=== PATIENT | female | born 2005 | race Two or more races ===

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

== ENCOUNTER 2025-03-21 16:07 | Inpatient (IN) | payer MEDICAID ==
[~2025-03-21] VITALS: Ht 167.6 cm; Wt 55.4 kg
[2025-03-21] MEDS: LORazepam 2MG/ML-1ML VIAL IM ONE (16:50)
[2025-03-21] MEDS: LORazepam 2MG/ML-1ML VIAL ONE (16:58)
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
[2025-03-21 18:30] LABS: Basophils # (auto) 0.1 10 ^3/uL (0-0.2); Eosinophils # (auto) 0 10 ^3/uL (0-0.8); Eosinophils % (auto) 0.5 % (0.0-7.0); Hematocrit 42.9 % (36.0-46.0); Hemoglobin 14.7 g/dL (12.2-16.2); Lymphocytes # (auto) 1.4 10 ^3/uL (0.4-5.4); Lymphocytes % (auto) 18.6 % (10.0-50.0); Mean Corpuscular Hgb Conc. 34.3 g/dL (32.0-36.0); Mean Corpuscular Volume 84.5 fL (80.0-100.0); Monocytes # (auto) 0.7 10 ^3/uL (0-1.3); Monocytes % (auto) 9.3 % (0.0-12.0); Neutrophils # (auto) 5.4 10 ^3/uL (1.6-8.6); Neutrophils % (auto) 70.6 % (37.0-80.0); Nucleated Red Blood Cells % 0.1 %; Platelet Count (auto) 244 10^3/uL (140-450); Red Blood Cells 5.07 10^6/uL (4.0-5.20); Red Cell Distribution Width 14.5 % (11.8-14.3); White Blood Cell 7.6 10^3/uL (4.4-10.8)
[2025-03-21 18:41] LABS: Alanine Aminotransferase 11 U/L (7-40); Alkaline Phosphatase 60 U/L (46-116); Anion Gap 17 (5-15); Aspartate Aminotransferase 15 U/L (13-40); BUN/Creatinine Ratio 16.1 (10.0-20.0); Blood Urea Nitrogen 10 mg/dL (9-23); Calcium 9.2 mg/dL (8.7-10.4); Chloride 102 mmol/L (98-107); Sodium 137 mmol/L (136-145); Total Protein 7.8 g/dL (5.7-8.2)
[2025-03-21 18:42] LABS: Bilirubin, Total 0.9 mg/dL (0.2-1.0)
[2025-03-21 18:47] LABS: Albumin 4.9 g/dL (3.2-4.8); Carbon Dioxide 18 mmol/L (20-31); Glucose 74 mg/dL (74-106); Potassium 3.4 mmol/L (3.5-5.1)
[2025-03-21 20:28] LABS: Urine Bacteria None Seen /hpf (None Seen)
[2025-03-21 20:36] LABS: Urine Blood Negative /uL (Negative); Urine Clarity Turbid (Clear); Urine Color Yellow (Yellow); Urine Mucus FEW (None Seen); Urine Protein, UAD 1+ (Negative); Urine Specific Gravity 1.036 (1.001-1.035); Urine Squamous Epithelial Cell FEW /hpf (<5); Urine Urobilinogen 2 mg/dL (Negative); Urine WBC 14 /HPF (0-5)
[2025-03-21] MEDS: POTASSIUM CHLORIDE 20 MEQ in D5W/LACTATED RINGERS 1,000 ML IV SCH (20:45)
[2025-03-21 20:48] LABS: Amphetamine Screen, Urine Neg (NEGATIVE); Barbiturate Scree,Urine Neg (NEGATIVE); Benzodiazephine Screen, Urine Neg (NEGATIVE); Cannabinoid Screen, Urine Pos (NEGATIVE); Cocaine Screen, Urine Neg (NEGATIVE); Opiate Scree,Urine Neg (NEGATIVE); Phencyclidine Screen, Urine Neg (NEGATIVE)
[2025-03-21] MEDS: D5W 5% 1,000 ML IV ONE (21:28)
--- NOTE | 2025-03-21 21:40 | DVH ---
EXAM: CT HEAD WITHOUT CONTRAST INDICATION: aloc TECHNIQUE: CT of the head without intravenous contrast. Radiation Dose : 1. Head: CT Dose: CTDI volume is 52 mGy. Dose-length product is 731 mGy*cm The dose indicators for CT are the volume Computed Tomography (CT) Dose Index (CTDIvol) and the Dose Length Product (DLP), and are measured in units of mGy and mGy-cm, respectively. These indicators are not patient dose, but values generated from the CT scanner acquisition factors. The report includes radiation exposure data for exposures received during this examination. COMPARISON: None FINDINGS: There is no evidence of acute intracranial hemorrhage, extra-axial collection, mass effect, midline s hift, herniation or hydrocephalus. The ventricles, sulci and cisterns are age appropriate. The hawley-white differentiation is intact. Patchy periventricular and subcortical white matter hypoattenuation is nonspecific but may be related to small vessel ischemic disease. The visualized paranasal sinuses and mastoid air cells are clear. The surrounding soft tissues and osseous structures are unremarkable. IMPRESSION: 1. No acute intracranial abnormality. Radiation optimization: All CT scans at this facility use at least one of these dose optimization eliud hniques: automated exposure control mA and/or kV adjustment per patient size (includes targeted exam s where dose is matched to clinical indication) or iterative reconstruction.
[2025-03-22] VITALS (7 sets, daily range): BP systolic 93–120; BP diastolic 48–53; PULSE 75–94; RESP 15–18; TEMP 98.4–98.8; O2SAT 96–100
[2025-03-22] MEDS ORDERED: D5W 5% 1,000 ML IV SCH (07:30)
[2025-03-22] MEDS: ONDANSETRON HCL 4 MG/2 ML VIAL ONE (07:31)
[2025-03-22] MEDS: ONDANSETRON HCL 4 MG/2 ML VIAL IV ONE (07:32)
[2025-03-22] MEDS ORDERED: ONDANSETRON HCL 4 MG/2 ML VIAL IV PRN (08:00)
[2025-03-22] MEDS ORDERED: HYDROcodone-ACET 5/325MG TAB PO PRN (08:00)
[2025-03-22] MEDS ORDERED: DOCUSATE SOD 100 MG CAP PO PRN (08:00)
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
[2025-03-22] MEDS: SODIUM CHLORIDE 0.9% 1,000 ML IV ONE (08:38)
[2025-03-22] MEDS: SODIUM CHLORIDE 0.9% 1,000 ML IV SCH (08:38)
[2025-03-22] MEDS: POTASSIUM CHL 20MEQ/100ML 100 ML IV ONE (09:38)
--- NOTE | 2025-03-22 12:12 | DVH ---
Date: 03/22/2025 10:27 AM Examination: XY KUB ABDOMEN SINGLE VIEW History: Nausea Comparison: None TECHNIQUE: Frontal views of the abdomen was obtained. FINDINGS: Bowel gas pattern is unremarkable. The lung bases are unremarkable. No acute osseous abnormality identified. IMPRESSION: Nonobstructive bowel gas pattern.
[2025-03-22] MEDS: methylPREDNISolone SOD SUCC 40 MG/ML VL IV ONE (14:15)
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
--- NOTE | 2025-03-22 16:30 | DVH ---
Exam: CT CHST AB PEL WO CON-NO IV/ORAL History: abd pain Comparison Study: None Technique: Multidetector spiral CT of the chest, abdomen and pelvis was performed from lower neck to pubic symphysis. Axial, coronal and sagittal multiplanar reformats were performed by the technologist on a separate workstation. Radiation Dose : Chest/Abdomen/Pelvis: CTDIvol 6.08 mGy, DLP 419.11 mGy*cm. Findings: Lower neck: Normal thyroid. Lungs: No focal consolidation, pleural effusion or pneumothorax. Heart/Vascular Structures: Normal heart size. No pericardial effusion. Lymph Nodes: No adenopathy Pleura: No pleural effusion or significant pneumothorax. Liver: Hypodensity in the liver adjacent to the falciform ligament likely focal fatty infiltration. Gallbladder and Biliary Tree: Unremarkable Spleen: Unremarkable Pancreas: The pancreas is normal in appearance without focal lesions or abnormal enhancement. Adrenal Glands: Unremarkable Kidneys: Kidneys demonstrate normal symmetric enhancement without focal lesions, calculi or hydroneph rosis. Bladder: Unremarkable Bowel: The stomach is grossly normal in appearance. Small bowel and colon are normal in caliber and d istribution. Normal appendix is visualized in the right lower quadrant without findings of appendici tis. Ascites: Free fluid in the pelvis is likely physiologic. Lymphadenopathy: No mesenteric, retroperitoneal or periportal lymphadenopathy. Abdominal Wall and Mesentery: Unremarkable. Vasculature: The visualized abdominal aorta is normal in size and caliber. Abdominal and pelvic vess els demonstrate normal enhancement. Pelvic Organs: Unremarkable Musculoskeletal: No aggressive focal bony lesions, acute fractures or dislocation. IMPRESSION: 1. No acute findings involving the chest, abdomen or pelvis. Likely focal fatty infiltration in the l iver. Free fluid in the pelvis is likely physiologic. HS:Y
[2025-03-22] MEDS: D5W/SOD CHL 0.45% 1,000 ML IV ONE (17:30)
[2025-03-22 18:00] LABS: Thyroid Stimulating Hormone 0.87 uIU/mL (0.55-4.78)
[2025-03-22 18:26] LABS: Basophils # (auto) 0.1 10 ^3/uL (0-0.2); Basophils % (auto) 0.8 % (0.0-2.0); Eosinophils # (auto) 0.1 10 ^3/uL (0-0.8); Eosinophils % (auto) 1.3 % (0.0-7.0); Hematocrit 39.5 % (36.0-46.0); Hemoglobin 13.7 g/dL (12.2-16.2); Lymphocytes # (auto) 1.5 10 ^3/uL (0.4-5.4); Lymphocytes % (auto) 23.1 % (10.0-50.0); Mean Corpuscular Hemoglobin 29.2 pg (28.0-32.0); Mean Corpuscular Hgb Conc. 34.8 g/dL (32.0-36.0); Mean Corpuscular Volume 84.1 fL (80.0-100.0); Monocytes # (auto) 0.6 10 ^3/uL (0-1.3); Monocytes % (auto) 8.8 % (0.0-12.0); Neutrophils # (auto) 4.4 10 ^3/uL (1.6-8.6); Nucleated Red Blood Cells % 0.1 %; Platelet Count (auto) 206 10^3/uL (140-450); Red Cell Distribution Width 14.1 % (11.8-14.3); White Blood Cell 6.7 10^3/uL (4.4-10.8)
[2025-03-22 18:41] LABS: Beta HCG, Quantitative 0.9 mIU/mL (1.5-4.2)
[2025-03-22 18:46] LABS: Alanine Aminotransferase 11 U/L (7-40); Albumin 4.2 g/dL (3.2-4.8); Alkaline Phosphatase 55 U/L (46-116); Anion Gap 14 (5-15); Aspartate Aminotransferase 16 U/L (13-40); BUN/Creatinine Ratio 10.3 (10.0-20.0); Calcium 9.5 mg/dL (8.7-10.4); Chloride 105 mmol/L (98-107); Glucose 91 mg/dL (74-106); Sodium 139 mmol/L (136-145); Total Protein 6.7 g/dL (5.7-8.2)
[2025-03-22 18:47] LABS: Bilirubin, Total 0.9 mg/dL (0.2-1.0)
[2025-03-22 18:51] LABS: Blood Urea Nitrogen 6 mg/dL (9-23); Carbon Dioxide 20 mmol/L (20-31); Potassium 3.2 mmol/L (3.5-5.1)
[2025-03-22] MEDS: methylPREDNISolone SOD SUCC 40 MG/ML VL IV SCH (22:00)
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
[2025-03-23] VITALS (8 sets, daily range): BP systolic 93–100; BP diastolic 47–59; PULSE 64–92; RESP 16–18; TEMP 98.1–98.6; O2SAT 97–100
[2025-03-23] MEDS: AMPICILLIN & SULBACTAM SODIUM 3 GM in SODIUM CHL 0.9% 100 ML IV SCH (00:30)
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
[2025-03-23] MEDS ORDERED: MORPHINE SULFATE INJ 2 MG/ml SYRG IV PRN (11:00)
[2025-03-23] MEDS: SODIUM CHLORIDE 0.9% 500 ML IV ONE (11:00)
[2025-03-23 11:45] LABS: Basophils # (auto) 0.1 10 ^3/uL (0-0.2); Basophils % (auto) 1.2 % (0.0-2.0); Eosinophils # (auto) 0.2 10 ^3/uL (0-0.8); Eosinophils % (auto) 3.2 % (0.0-7.0); Hematocrit 36.4 % (36.0-46.0); Hemoglobin 12.9 g/dL (12.2-16.2); Lymphocytes # (auto) 1.9 10 ^3/uL (0.4-5.4); Lymphocytes % (auto) 35.4 % (10.0-50.0); Mean Corpuscular Hemoglobin 29.3 pg (28.0-32.0); Mean Corpuscular Hgb Conc. 35.3 g/dL (32.0-36.0); Mean Corpuscular Volume 82.9 fL (80.0-100.0); Monocytes # (auto) 0.6 10 ^3/uL (0-1.3); Monocytes % (auto) 11.6 % (0.0-12.0); Neutrophils # (auto) 2.6 10 ^3/uL (1.6-8.6); Neutrophils % (auto) 48.6 % (37.0-80.0); Nucleated Red Blood Cells % 0.2 %; Platelet Count (auto) 191 10^3/uL (140-450); Red Blood Cells 4.39 10^6/uL (4.0-5.20); Red Cell Distribution Width 13.9 % (11.8-14.3); White Blood Cell 5.3 10^3/uL (4.4-10.8)
[2025-03-23 11:59] LABS: Alanine Aminotransferase 13 U/L (7-40); Albumin 3.7 g/dL (3.2-4.8); Alkaline Phosphatase 51 U/L (46-116); Anion Gap 9 (5-15); Aspartate Aminotransferase 15 U/L (13-40); BUN/Creatinine Ratio 11.1 (10.0-20.0); Bilirubin, Total 0.7 mg/dL (0.2-1.0); Blood Urea Nitrogen < 5 mg/dL (9-23); Calcium 9.2 mg/dL (8.7-10.4); Carbon Dioxide 25 mmol/L (20-31); Chloride 105 mmol/L (98-107); Glucose 95 mg/dL (74-106); Potassium 2.8 mmol/L (3.5-5.1); Sodium 139 mmol/L (136-145)
[2025-03-23] MEDS: D5W/SOD CHL 0.45% 1,000 ML IV SCH (12:00)
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
--- NOTE | 2025-03-23 16:50 | DVHINCON2 ---
Date of service: March 23, [address] Tamez Reason for Consultation Nausea vomiting and drooling inability to swallow History of Present Illness Miriam Pelletier is a 19-year-old female being seen for generalized weakness. The patient was brought in by her brother due to her not eating, vomiting, and losing weight. On assessment the patient is vomiting. She has refused to take anything PO from the nurse. She is not speaking much and will minimally answer questions. According to her older brother who is bedside, he states she ran away with her boyfriend about 4 years ago. She came home 2 years ago, stated something about possibly having an . Then left with the boyfriend again and was not seen for another 2 years. She came home two days ago and the family was concerned about her physical and mental state so they brought her to the hospital. He states when they were younger, there were problems with their real parents. Miriam and his younger brother were in counseling and placed on medications, but he is not sure of the diagnosis or the medication. Family History: Patient reports no known family medical history. Allergies: Coded Allergies: [place] (Verified Allergy, Severe, 03/21/25) Current Medications Current Medications Medications (Trade) Dose Ordered Sig/Heather Route PRN Reason Start Time Stop Time Status Last Admin Methylprednisolone Sodium Succinate (Solu Medrol) 20 mg BID IV 03/22/25 22:00 Ampicillin Sodium/ Sulbactam Sodium 3 gm/Sodium Chloride 100 ml @ 100 mls/hr Q6H IV 03/23/25 00:30 Dextrose/Sodium Chloride 1,000 ml @ 75 mls/hr [id number] IV 03/23/25 11:00 03/23/25 12:00 Morphine Sulfate 2 mg Q6HPRN PRN IV MODERATE PAIN (4-6 PAIN SCALE) 03/23/25 11:00 Vital Signs Vital Signs Date Time Temp Pulse Resp B/P (MAP) Pulse Ox O2 Delivery O2 Flow Rate FiO2 03/23/25 13:15 98.2 92 18 98/59 (72) 98 98.2 03/23/25 08:00 Room Air* 0 21 Physical Exam On exam she is severely lethargic, very slow to open mouth. No lid lag/lid fatigue. General Appearance: Alert, Oriented X3, lethargic and sleepy but arousable, can not decipher her speech HEENT: Atraumatic, PERRLA, Mucous membr. moist/pink Respiratory: Clear to auscultation, Normal air movement Cardiovascular: Regular rate, Normal S1, Normal S2 Abdominal: Normal bowel sounds, Soft; mild epigastric tenderness no rebound or guarding Extremities: No clubbing, No cyanosis, No edema, Normal pulses Skin: No rashes, No breakdown, No significant lesion Neuro: Normal gait, Other (decreased strength) Psych/Mental Status: Other (withdrawn, slow to answer, ) Reflexes intact but diminished lower extremity. Strength 3-lower extremities, 4- upper extremities. Not swallowing, drooling saliva out. Tries to talk but unable to hear voice. Failed bedside swallow test. Labs/Diagnostic Data Labs Test 03/23/25 11:17 03/22/25 17:07 03/22/25 12:41 03/22/25 06:27 Range/Units White Blood Count 5.3 4.4-10.8 10^3/uL Red Blood Count 4.39 4.0-5.20 10^6/uL Hemoglobin 12.9 12.2-16.2 g/dL Hematocrit 36.4 36.0-46.0 % Mean Corpuscular Volume 82.9 80.0-100.0 fL Mean Corpuscular Hemoglobin 29.3 28.0-32.0 pg Mean Corpuscular Hemoglobin Concent 35.3 32.0-36.0 g/dL Red Cell Distribution Width 13.9 11.8-14.3 % Platelet Count 191 140-450 10^3/uL Mean Platelet Volume 9.5 6.9-10.8 fL Neutrophils (%) (Auto) 48.6 37.0-80.0 % Lymphocytes (%) (Auto) 35.4 10.0-50.0 % Monocytes (%) (Auto) 11.6 0.0-12.0 % Eosinophils (%) (Auto) 3.2 0.0-7.0 % Basophils (%) (Auto) 1.2 0.0-2.0 % Neutrophils # (Auto) 2.6 1.6-8.6 10 ^3/uL Lymphocytes # (Auto) 1.9 0.4-5.4 10 ^3/uL Monocytes # (Auto) 0.6 0-1.3 10 ^3/uL Eosinophils # (Auto) 0.2 0-0.8 10 ^3/uL Basophils # (Auto) 0.1 0-0.2 10 ^3/uL Nucleated Red Blood Cells 0.2 % Sodium Level 139 136-145 mmol/L Potassium Level 2.8 L 3.5-5.1 mmol/L Chloride Level 105 98-107 mmol/L Carbon Dioxide Level 25 20-31 mmol/L Anion Gap 9 5-15 Blood Urea Nitrogen < 5 L 9-23 mg/dL Creatinine 0.45 L 0.550-1.02 mg/dL Glomerular Filtration Rate Calc 140 >90 mL/min BUN/Creatinine Ratio 11.1 10.0-20.0 Serum Glucose 95 74-106 mg/dL Calcium Level 9.2 8.7-10.4 mg/dL Total Bilirubin 0.7 0.2-1.0 mg/dL Aspartate Amino Transferase (AST) 15 13-40 U/L Alanine Aminotransferase (ALT) 13 7-40 U/L Alkaline Phosphatase 51 46-116 U/L Creatine Kinase 22 L 34-145 U/L Total Protein 6.0 5.7-8.2 g/dL Albumin 3.7 3.2-4.8 g/dL Free Thyroxine (T4) Calculated 1.36 0.89-1.76 ng/dL Thyroid Stimulating Hormone (TSH) 0.87 0.55-4.78 uIU/mL Beta HCG, Quantitative 0.9 L 1.5-4.2 mIU/mL Treponema pallidum Antibody Non-reactive Negative HIV (1&2) Antibody Negative Negative Lactic Acid Level 0.9 0.4-2.0 mmol/L POC Glucose 238 H 70-106 mg/dl Test 03/21/25 22:09 03/21/25 20:20 Range/Units Ammonia < 10 L 11-32 umol/L Urine Color Yellow Yellow Urine Clarity Turbid H Clear Urine pH 6.0 5.0-9.0 Urine Specific [place] 1.036 H 1.001-1.035 Urine Protein 1+ H Negative Urine Ketones 4+ H Negative Urine Blood Negative Negative /uL Urine Nitrite Negative Negative Urine Bilirubin Negative Negative Urine Urobilinogen 2 H Negative mg/dL Urine Leukocyte Esterase Trace Negative /uL Urine RBC 2 0 - 4 /hpf Urine Microscopic WBC 14 H 0-5 /HPF Urine Squamous Epithelial Cells Few <5 /hpf Urine Bacteria None seen None Seen /hpf Urine Mucus Few None Seen Urine Glucose Normal Normal mg/dL Urine Test Negative Negative Urine Opiates Screen Neg NEGATIVE Urine Fentanyl Screen Neg NEGATIVE Urine Barbiturates Screen Neg NEGATIVE Urine Phencyclidine Screen Neg NEGATIVE Urine Amphetamines Screen Neg NEGATIVE Urine Benzodiazepines Screen Neg NEGATIVE Urine Cocaine Screen Neg NEGATIVE Urine Cannabinoids Screen Pos NEGATIVE CT CHEST ABD PELVIS IMPRESSION: 1. No acute findings involving the chest, abdomen or pelvis. Likely focal fatty infiltration in the liver. Free fluid in the pelvis is likely physiologic. Problems(with codes): (1) Oropharyngeal dysphagia (2) Alteration of consciousness (3) Weight loss (4) Nausea & vomiting (5) Metabolic encephalopathy Plan/Recommendation Assessment plan Patient is undergoing neurological evaluation and psych evaluation and an MRI of the brain is recommended Check vitamin B12 serum folate level; thyroid function is normal Consider thiamine supplementation Protonix 40 mg IV daily Possible endoscopy on 03/24 if the patient is cleared medically to proceed with the procedure Plan discussed with: Patient, Other (Dr Tamez) TERENCE MINER MD March 23, 2025 16:50
[2025-03-23] MEDS: POTASSIUM CHLORIDE 60 MEQ, LIDOCAINE 1% (LOCAL ANESTH.) 6 ML in SODIUM CHL 0.9% 500 ML IV ONE (17:15)
[2025-03-23] MEDS ORDERED: PPN PER PHARMACY 0 ML IV SCH (17:15)
[2025-03-23] MEDS: PANTOPRAZOLE 40 MG/10 ML VIAL INJ IV SCH (22:00)
[2025-03-23] MEDS: AMINO ACID INFUSION IN D10W 1,000 ML IV SCH (22:00)
[2025-03-23] MEDS: ONDANSETRON HCL 4 MG/2 ML VIAL IV PRN (23:25)
[2025-03-23] MEDS: InsuLIN REG 1unit/0.01ml Soln (100units/ml) SC SCH (23:25)
[2025-03-23] MEDS: ACCU-CHEK COMFORT CURVE STRIP VI SCH (23:26)
[2025-03-24] MEDS ORDERED: DEXTROSE (50%) 50ML SYRG IV SCH
[2025-03-24 05:00] VITALS: BP 98/56; PULSE 83; RESP 18; TEMP 98.5; O2SAT 99
[2025-03-24 08:00] VITALS: PULSE 82; RESP 18; O2SAT 99
[2025-03-24 11:41] LABS: Basophils # (auto) 0.1 10 ^3/uL (0-0.2); Basophils % (auto) 0.8 % (0.0-2.0); Eosinophils # (auto) 0.1 10 ^3/uL (0-0.8); Eosinophils % (auto) 1.9 % (0.0-7.0); Hematocrit 37.2 % (36.0-46.0); Hemoglobin 13.2 g/dL (12.2-16.2); Lymphocytes # (auto) 1.9 10 ^3/uL (0.4-5.4); Lymphocytes % (auto) 26.9 % (10.0-50.0); Mean Corpuscular Hemoglobin 29.7 pg (28.0-32.0); Mean Corpuscular Hgb Conc. 35.5 g/dL (32.0-36.0); Mean Corpuscular Volume 83.5 fL (80.0-100.0); Monocytes # (auto) 0.6 10 ^3/uL (0-1.3); Monocytes % (auto) 9.3 % (0.0-12.0); Neutrophils # (auto) 4.2 10 ^3/uL (1.6-8.6); Neutrophils % (auto) 61.1 % (37.0-80.0); Platelet Count (auto) 184 10^3/uL (140-450); Red Blood Cells 4.45 10^6/uL (4.0-5.20); Red Cell Distribution Width 14.2 % (11.8-14.3); White Blood Cell 6.9 10^3/uL (4.4-10.8)
[2025-03-24 11:45] VITALS: BP 109/66; PULSE 96; RESP 18; TEMP 99.5; O2SAT 99
[2025-03-24 11:51] LABS: INR 1.19 (0.9-1.15); Partial Thromboplastin Time 29.1 SEC (24.5-34.5); Prothrombin Time 12.4 sec (9.3-11.8)
[2025-03-24 11:57] LABS: Alanine Aminotransferase 13 U/L (7-40); Albumin 3.9 g/dL (3.2-4.8); Alkaline Phosphatase 53 U/L (46-116); Anion Gap 11 (5-15); Aspartate Aminotransferase 14 U/L (13-40); Calcium 9.4 mg/dL (8.7-10.4); Carbon Dioxide 23 mmol/L (20-31); Glucose 83 mg/dL (74-106); Potassium 3.9 mmol/L (3.5-5.1); Sodium 142 mmol/L (136-145); Total Protein 6.3 g/dL (5.7-8.2); Triglycerides 68 mg/dL (< 150)
[2025-03-24 11:58] LABS: BUN/Creatinine Ratio 11.1 (10.0-20.0); Bilirubin, Total 0.7 mg/dL (0.2-1.0); Blood Urea Nitrogen < 5 mg/dL (9-23); Chloride 108 mmol/L (98-107); Phosphorus 2.9 mg/dL (2.4-5.1)
[2025-03-24] MEDS ORDERED: fentaNYL CITRATE 100 MCG/2 ML VL ONE (12:39)
[2025-03-24] MEDS ORDERED: MIDAZOLAM HCL 2MG/2ML 2ml VIAL (1mg/ml) ONE (12:39)
[2025-03-24] MEDS ORDERED: PHENYLEPHRINE HCL 10 MG/ML VL IV ONE (12:55)
[2025-03-24] MEDS ORDERED: PROPOFOL 10 MG/ML 20 ML IV ONE (12:58)
[2025-03-24] MEDS ORDERED: DexAMETHasone SOD PHOS 10MG/1ML VIAL INJ ONE (12:58)
[2025-03-24] MEDS ORDERED: ONDANSETRON HCL 4 MG/2 ML VIAL ONE (12:59)
[2025-03-24 13:05] VITALS: PULSE 84; RESP 16; O2SAT 100
--- NOTE | 2025-03-24 13:19 | DVHOP2 ---
Operative Report DATE OF OPERATION: 03/24/25 PROCEDURE: Upper Endoscopy with biopsy. PREOPERATIVE INDICATION: The patient is a 19 -year-old female undergoing endoscopy for nausea vomiting and weight loss POSTOPERATIVE DIAGNOSES: 1. 2 cm sliding-type hiatal hernia with grade B to C erosive esophagitis with superficial esophageal ulcers extending into the distal 10-12 cm of the esophagus from which biopsies were obtained 2. Mild gastritis with some hyperemia erythema and superficial erosions 3. Minimal duodenitis of the duodenal bulb otherwise normal examination up to t he 2nd and 3rd part of the duodenum PROCEDURE PERFORMED BY: Terence Scott GI NURSE: Susana SCOPE: Olympus videoendoscope. ASA CLASS: 3 PREOPERATIVE MEDICATIONS: Mac sedation, Dr. Flowers PROCEDURE IN DETAIL: After obtaining an informed consent, the patient was placed on left lateral decubitus position. The patient was then sedated with the above medications. A bite block was placed between her teeth. The endoscope was then passed through the oropharynx, into the esophagus, and through the stomach and pylorus up to the second and third part of the duodenum. The endoscope was then withdrawn. The 2nd and 3rd part of the duodenum were normal and the duodenal bulb showed minimal duodenitis . Was mild effacement of the duodenal mucosa Duodenal biopsies were obtained. The pre-pyloric area antrum and body showed mild gastritis with some hyperemia erythema On retroflexion the fundus cardia and angularis were normal. Gastric biopsies were obtained. The endoscope was then withdrawn into distal esophagus where the patient had a 2 cm sliding-type hiatal hernia with irregular squamocolumnar junction She had superficial esophageal ulcers extending into the distal 10-12 cm of the esophagus with some hyperemia erythema chronic inflammation from which biopsies were obtained The remaining mid to proximal esophagus and oropharynx were unremarkable. The patient tolerated the procedure well without difficulty. COMPLICATIONS : None SPECIMENS: Duodenal biopsies Gastric biopsies Esophageal biopsies DISPOSITION: Transfer back to the floor Stable PLAN: 1. Await for biopsy result 2. Will place pt on Protonix 40 mg bid IV 3. Carafate 1 g p.o. 4 times a day 4. DC aspirin NSAIDs smoking alcohol 5. Full liquid diet advance to soft diet if tolerated 6. Zofran as needed for nausea and vomiting TERENCE SCOTT MD March 24, 2025 13:19
[2025-03-24 13:44] VITALS: BP 96/50; PULSE 63; RESP 17; TEMP 99.2; O2SAT 96
[2025-03-24] MEDS: ACYCLOVIR 200 MG/5 ML SUSP PO SCH (14:00)
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
[2025-03-24] MEDS: SUCRALFATE 1 GM/10 ML ORAL SUSP PO SCH (17:00)
[2025-03-24 21:00] VITALS: BP 101/56; PULSE 69; RESP 17; TEMP 98.1; O2SAT 100
[2025-03-24] MEDS: AMINO ACID INFUSION IN D10W 1,000 ML IV SCH (22:00)
[2025-03-24] MEDS: PANTOPRAZOLE 40 MG/10 ML VIAL INJ IV SCH (22:00)
[2025-03-24] MEDS: THIAMINE 100mg/ml INJ (200mg/2ml VIAL) IV ONE (22:00)
[2025-03-25 05:00] VITALS: BP 95/57; PULSE 67; RESP 16; TEMP 97.9; O2SAT 97
[2025-03-25 08:00] VITALS: RESP 18
[2025-03-25 08:37] VITALS: BP 97/58; PULSE 62; RESP 15; TEMP 98.1; O2SAT 98
[2025-03-25 11:00] LABS: Chloride 107 mmol/L (98-107); Sodium 141 mmol/L (136-145)
[2025-03-25 11:01] LABS: Anion Gap 14 (5-15); Calcium 9.1 mg/dL (8.7-10.4); Carbon Dioxide 20 mmol/L (20-31)
[2025-03-25 11:05] LABS: Potassium 3.2 mmol/L (3.5-5.1)
[2025-03-25 11:06] LABS: GFR African American 200 mL/min; GFR Non-African American 166 mL/min; Glucose 95 mg/dL (74-106)
[2025-03-25 11:07] LABS: Magnesium 1.9 mg/dL (1.6-2.6)
[2025-03-25 11:08] LABS: Albumin 3.6 g/dL (3.2-4.8); Blood Urea Nitrogen < 5 mg/dL (9-23)
[2025-03-25 11:09] LABS: Phosphorus 3.2 mg/dL (2.4-5.1)
[2025-03-25] MEDS ORDERED: POTASSIUM CHL 20MEQ/100ML 100 ML IV SCH (13:00)
[2025-03-25] MEDS: AZITHROMYCIN 250 MG TAB PO ONE (13:30)
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
[2025-03-25] MEDS: POTASSIUM CHLORIDE 40 MEQ, LIDOCAINE 1% (LOCAL ANESTH.) 4 ML in SODIUM CHL 0.9% 250 ML IV ONE (15:15)
[2025-03-25] MEDS: AMINO ACID INFUSION IN D10W 1,000 ML IV SCH (20:24)
[2025-03-25 21:00] VITALS: BP 95/53; PULSE 60; RESP 17; TEMP 97.8; O2SAT 99
[2025-03-26 01:00] VITALS: BP 96/53; PULSE 64; RESP 16; TEMP 97.9; O2SAT 98
[2025-03-26 05:00] VITALS: BP 103/60; PULSE 70; RESP 17; TEMP 97.9; O2SAT 100
[2025-03-26 09:00] VITALS: BP 101/52; PULSE 66; RESP 18; TEMP 97.6; O2SAT 100
[2025-03-26] MEDS: LIDOCAINE VISCOUS 2% 15ML UD PO ONE (09:30)
[2025-03-26] MEDS: MAALOX PLUS or MAALOX 30 ML PO ONE (09:30)
[2025-03-26] MEDS: AZITHROMYCIN 250 MG TAB PO SCH (09:44)
[2025-03-26 11:04] LABS: Alanine Aminotransferase 10 U/L (7-40); Albumin 3.7 g/dL (3.2-4.8); Anion Gap 7 (5-15); Carbon Dioxide 27 mmol/L (20-31); Chloride 105 mmol/L (98-107); Glucose 83 mg/dL (74-106); Magnesium 1.9 mg/dL (1.6-2.6); Sodium 139 mmol/L (136-145); Total Protein 5.8 g/dL (5.7-8.2)
[2025-03-26 11:06] LABS: Bilirubin, Total 0.6 mg/dL (0.2-1.0); Phosphorus 3.1 mg/dL (2.4-5.1)
[2025-03-26 11:11] LABS: Alkaline Phosphatase 46 U/L (46-116); Aspartate Aminotransferase 9 U/L (13-40); BUN/Creatinine Ratio 10.9 (10.0-20.0); Blood Urea Nitrogen < 5 mg/dL (9-23); Calcium 8.7 mg/dL (8.7-10.4); Potassium 3.4 mmol/L (3.5-5.1)
[2025-03-26 13:00] VITALS: BP 107/50; PULSE 68; RESP 18; TEMP 97.2; O2SAT 100
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
[2025-03-26 17:00] VITALS: BP 100/52; PULSE 63; RESP 18; TEMP 98; O2SAT 99
[2025-03-26 21:00] VITALS: BP 96/54; PULSE 69; RESP 18; TEMP 98.6; O2SAT 96
[2025-03-27 09:00] VITALS: BP 108/66; PULSE 78; RESP 17; TEMP 97.5; O2SAT 100
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
[2025-03-27 13:00] VITALS: BP 110/68; PULSE 79; RESP 17; TEMP 97.4; O2SAT 99
[2025-03-27 17:20] VITALS: BP 101/67; PULSE 80; RESP 17; TEMP 97.7; O2SAT 98
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
[2025-03-27 21:00] VITALS: BP 103/58; PULSE 70; RESP 18; TEMP 97.7; O2SAT 100
[2025-03-27] MEDS: AMINO ACID INFUSION IN D10W 1,000 ML IV ONE (22:00)
[2025-03-28 01:00] VITALS: BP 105/64; PULSE 79; RESP 18; TEMP 98.2; O2SAT 100
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
[2025-03-28] MEDS: AMINO ACID INFUSION IN D10W 1,000 ML IV ONE (20:54)
[2025-03-28 21:00] VITALS: BP 99/60; PULSE 81; RESP 18; TEMP 99; O2SAT 100
--- NOTE | 2025-03-28 23:05 | DVHPN2 ---
Progress Note - Dictate Date Seen: March 28, 2025 Medical Necessity Reason Pt with a Central, PICC or Fol: No Subjective Patient is not compliant with medical management and is refusing medications and medical care She was found to be sleeping comfortably in bed this morning vital signs Vital Sign Date Time Temp Pulse Resp B/P (MAP) Pulse Ox O2 Delivery O2 Flow Rate FiO2 03/28/25 21:00 99.0 81 18 99/60 (73) 100 99.0 03/28/25 18:13 Room Air* 2 N/A Nasal Cannula* Total Intake and Output 03/27/25 03/27/25 03/28/25 15:00 23:00 07:00 Intake Total 0 ml 0 ml Balance 0 ml 0 ml medications Current Medications Medications Dose Ordered Sig/Heather Route Start Time Stop Time Status Last Admin Dose Admin Acetaminophen/ Hydrocodone Bitart 1 tab Q4HP PRN PO 03/22/25 08:00 Docusate Sodium 100 mg BIDPRN PRN PO 03/22/25 08:00 Acetaminophen 650 mg Q6HP PRN PO 03/22/25 08:00 Metoclopramide HCl 5 mg Q6HPRN PRN IV 03/22/25 08:00 Dextrose/Sodium Chloride 1,000 ml @ 75 mls/hr [id number] IV 03/23/25 11:00 03/25/25 02:42 75 MLS/HR Morphine Sulfate 2 mg Q6HPRN PRN IV 03/23/25 11:00 Amino Acids 0 ml @ 0 mls/hr PER PHARMACY IV 03/23/25 17:15 Diagnostic Test (Pha) 1 strip Q6HR 03/24/25 00:00 Insulin Human Regular FOLLOW SLIDING SCALE Q6HR SC 03/24/25 00:00 Dextrose 50 ml UD IV 03/24/25 00:00 Pantoprazole Sodium 40 mg BID IV 03/24/25 22:00 03/28/25 21:02 40 MG Ondansetron HCl 4 mg Q8HPRN PRN IV 03/24/25 13:30 Sucralfate 1 gm QID@0600,1130,1700,2200 PO 03/24/25 17:00 Acyclovir 400 mg Q8HR PO 03/24/25 14:00 Azithromycin 500 mg DAILY PO 03/26/25 10:00 objective General Appearance: Alert, Oriented X3, lethargic and sleepy but arousable, can not decipher her speech HEENT: Atraumatic, PERRLA, Mucous membr. moist/pink Respiratory: Clear to auscultation, Normal air movement Cardiovascular: Regular rate, Normal S1, Normal S2 Abdominal: Normal bowel sounds, Soft; mild epigastric tenderness no rebound or guarding Extremities: No clubbing, No cyanosis, No edema, Normal pulses laboratory and microbiology Laboratory Tests 03/26/25 10:35 03/24/25 11:20 Test 03/26/25 10:35 Range/Units Serum Glucose 83 74-106 mg/dL Problems(with codes): (1) Hiatal hernia with gastroesophageal reflux disease and esophagitis (2) Metabolic encephalopathy (3) Nausea & vomiting (4) Weight loss (5) Oropharyngeal dysphagia Prognosis Plan Protonix 40 mg IV q.12 hours Patient refused the swallow eval about two days ago Currently she is scheduled to be on a full liquid diet and I am not sure how much she is eating Carafate 1 g p.o. 4 times a day Continue nystatin and acyclovir suspension Await final pathology results Prognosis remains guarded Tele psych consult but patient is not cooperative Dietary Evaluation Review Comments: 1. Advance diet as medically feasible 2. TPN to meet at least 75% estimated needs 3. Continue current POC Expected Outcomes/Goals: Energy & protein intake to meet at least 75% estimated needs FU 2-3 days Plan discussed with: Patient TERENCE MINER MD March 28, 2025 23:05
[2025-03-29 01:00] VITALS: BP 113/59; PULSE 71; RESP 18; TEMP 99.1; O2SAT 100
[2025-03-29] MEDS: ONDANSETRON HCL 4 MG/2 ML VIAL IV PRN (03:38)
[2025-03-29 05:00] VITALS: BP 101/62; PULSE 63; RESP 18; O2SAT 100
[2025-03-29 08:30] VITALS: BP 101/63; PULSE 70; RESP 14; TEMP 97.5; O2SAT 100
[2025-03-29 12:45] VITALS: BP 105/62; PULSE 62; RESP 14; TEMP 97.5; O2SAT 100
[2025-03-29 20:00] VITALS: PULSE 61; RESP 16; O2SAT 100
[2025-03-29 21:00] VITALS: BP 105/56; PULSE 61; RESP 16; TEMP 97.5; O2SAT 100
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
[2025-03-29] MEDS: AMINO ACID INFUSION IN D10W 1,000 ML IV SCH (22:26)
[2025-03-30 08:17] VITALS: PULSE 62; O2SAT 100
[2025-03-30 08:46] VITALS: BP 106/66; PULSE 62; RESP 16; TEMP 97.6; O2SAT 100
[2025-03-30 10:52] LABS: Alanine Aminotransferase 20 U/L (7-40); Alkaline Phosphatase 56 U/L (46-116); Anion Gap 11 (5-15); Aspartate Aminotransferase 19 U/L (13-40); BUN/Creatinine Ratio 21.9 (10.0-20.0); Blood Urea Nitrogen 14 mg/dL (9-23); Calcium 10.2 mg/dL (8.7-10.4); Carbon Dioxide 29 mmol/L (20-31); Chloride 99 mmol/L (98-107); Magnesium 2.4 mg/dL (1.6-2.6); Sodium 139 mmol/L (136-145); Total Protein 7.7 g/dL (5.7-8.2)
[2025-03-30 10:53] LABS: Bilirubin, Total 0.8 mg/dL (0.2-1.0); Glucose 147 mg/dL (74-106); Phosphorus 2.5 mg/dL (2.4-5.1); Potassium 2.9 mmol/L (3.5-5.1)
[2025-03-30 13:00] VITALS: BP 110/62; PULSE 65; RESP 17; TEMP 97.5; O2SAT 92
[2025-03-30] MEDS: POTASSIUM CHL 20MEQ/100ML 100 ML IV SCH (18:33)
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
[2025-03-30 20:00] VITALS: PULSE 62; RESP 17; O2SAT 98
[2025-03-30 21:00] VITALS: BP 105/54; PULSE 62; RESP 17; TEMP 97.7; O2SAT 98
[2025-03-30] MEDS: METOCLOPRAMIDE HCL 5MG/ml INJ 2ml VIAL IV PRN (22:09)
[2025-03-30] MEDS: AMINO ACID INFUSION IN D10W 1,000 ML IV SCH (22:14)
--- NOTE | 2025-03-30 22:23 | DVHPN2 ---
Progress Note - Dictate Date Seen: March 30, 2025 Medical Necessity Reason Pt with a Central, PICC or Fol: No Subjective Patient is not compliant with medical management and is refusing medications and medical care Patient has been refusing Carafate and only took one dose She took a shower today with the assistance and ambulated vital signs Vital Sign Date Time Temp Pulse Resp B/P (MAP) Pulse Ox O2 Delivery O2 Flow Rate FiO2 03/30/25 13:00 97.5 65 17 110/62 (78) 92 97.5 03/30/25 08:17 Room Air* 0 21 Total Intake and Output 03/29/25 03/29/25 03/30/25 15:00 23:00 07:00 Intake Total 852 ml 300 ml Balance 852 ml 300 ml medications Current Medications Medications Dose Ordered Sig/Heather Route Start Time Stop Time Status Last Admin Dose Admin Acetaminophen/ Hydrocodone Bitart 1 tab Q4HP PRN PO 03/22/25 08:00 Docusate Sodium 100 mg BIDPRN PRN PO 03/22/25 08:00 Acetaminophen 650 mg Q6HP PRN PO 03/22/25 08:00 Metoclopramide HCl 5 mg Q6HPRN PRN IV 03/22/25 08:00 03/30/25 22:09 5 MG Dextrose/Sodium Chloride 1,000 ml @ 75 mls/hr [id number] IV 03/23/25 11:00 03/25/25 02:42 75 MLS/HR Morphine Sulfate 2 mg Q6HPRN PRN IV 03/23/25 11:00 Amino Acids 0 ml @ 0 mls/hr PER PHARMACY IV 03/23/25 17:15 Diagnostic Test (Pha) 1 strip Q6HR 03/24/25 00:00 03/30/25 17:30 1 STRIP Insulin Human Regular FOLLOW SLIDING SCALE Q6HR SC 03/24/25 00:00 Dextrose 50 ml UD IV 03/24/25 00:00 Pantoprazole Sodium 40 mg BID IV 03/24/25 22:00 03/30/25 21:17 40 MG Ondansetron HCl 4 mg Q8HPRN PRN IV 03/24/25 13:30 03/30/25 20:10 4 MG Sucralfate 1 gm QID@0600,1130,1700,2200 PO 03/24/25 17:00 03/30/25 17:28 1 GM Acyclovir 400 mg Q8HR PO 03/24/25 14:00 Azithromycin 500 mg DAILY PO 03/26/25 10:00 Amino Acids/ Electrolytes/ Dextrose 1,000 ml @ 41 mls/hr DAILY@2200 IV 03/30/25 22:00 03/30/25 22:14 41 MLS/HR Potassium Chloride 100 ml @ 50 mls/hr Q2H IV 03/30/25 17:45 03/30/25 23:44 03/30/25 21:11 50 MLS/HR objective General Appearance: Alert, Oriented X3, lethargic and sleepy but arousable, can not decipher her speech HEENT: Atraumatic, PERRLA, Mucous membr. moist/pink Respiratory: Clear to auscultation, Normal air movement Cardiovascular: Regular rate, Normal S1, Normal S2 Abdominal: Normal bowel sounds, Soft; mild epigastric tenderness no rebound or guarding Extremities: No clubbing, No cyanosis, No edema, Normal pulses laboratory and microbiology Laboratory Tests 03/30/25 09:55 03/24/25 11:20 Test 03/30/25 09:55 Range/Units Serum Glucose 147 H 74-106 mg/dL Problems(with codes): (1) Marijuana use (2) Hiatal hernia with gastroesophageal reflux disease and esophagitis (3) Metabolic encephalopathy (4) Nausea & vomiting (5) Alteration of consciousness (6) Weight loss Prognosis Plan I will change the Carafate to a pill form possibly that patient will consume Continue Protonix 40 mg IV q.12 hours for her severe GERD Advance diet as tolerated Nutritional supplements Discharge planning as per hospitalist team Counseled patient about discontinuing marijuana Dietary Evaluation Review Comments: 1. Advance diet as medically feasible 2. TPN to meet at least 75% estimated needs 3. Continue current POC Expected Outcomes/Goals: Energy & protein intake to meet at least 75% estimated needs FU 2-3 days Plan discussed with: Patient TERENCE MINER MD March 30, 2025 22:23
[2025-03-31] VITALS (7 sets, daily range): BP systolic 92–107; BP diastolic 56–68; PULSE 64–78; RESP 14–20; TEMP 97–97.7; O2SAT 96–100
[2025-03-31] MEDS: SUCRALFATE 1 GM TAB PO SCH (05:35)
[2025-03-31 12:33] LABS: Alanine Aminotransferase 48 U/L (7-40); Albumin 4.4 g/dL (3.2-4.8); Alkaline Phosphatase 50 U/L (46-116); Anion Gap 8 (5-15); Aspartate Aminotransferase 41 U/L (13-40); BUN/Creatinine Ratio 15.4 (10.0-20.0); Bilirubin, Total 1.1 mg/dL (0.2-1.0); Blood Urea Nitrogen 8 mg/dL (9-23); Calcium 8.9 mg/dL (8.7-10.4); Carbon Dioxide 29 mmol/L (20-31); Chloride 100 mmol/L (98-107); GFR African American 191 mL/min; GFR Non-African American 158 mL/min; Glucose 136 mg/dL (74-106); Magnesium 2.1 mg/dL (1.6-2.6); Phosphorus 2.2 mg/dL (2.4-5.1); Potassium 2.9 mmol/L (3.5-5.1); Sodium 137 mmol/L (136-145); Total Protein 6.8 g/dL (5.7-8.2)
[2025-03-31 16:07] LABS: Vitamin B1, Whole Blood 68.2 nmol/L (66.5-200.0)
[2025-03-31] MEDS: PANTOPRAZOLE 40 MG TAB PO SCH (17:48)
[2025-03-31] MEDS: POTASSIUM CHL 20MEQ/100ML 100 ML IV ONE (17:50)
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
[2025-03-31] MEDS: POTASSIUM PHOSPHATE 44 MEQ in D5W 5% 250 ML IV ONE (20:00)
[2025-04-01] VITALS (7 sets, daily range): BP systolic 103–113; BP diastolic 50–75; PULSE 66–76; RESP 14–20; TEMP 97.1–98.7; O2SAT 98–100
[2025-04-01 07:56] LABS: Albumin 4.4 g/dL (3.2-4.8); Alkaline Phosphatase 66 U/L (46-116); Anion Gap 9 (5-15); BUN/Creatinine Ratio 15.9 (10.0-20.0); Carbon Dioxide 28 mmol/L (20-31); Chloride 100 mmol/L (98-107); Sodium 137 mmol/L (136-145); Total Protein 6.9 g/dL (5.7-8.2)
[2025-04-01 07:57] LABS: Bilirubin, Total 1.2 mg/dL (0.2-1.0); Phosphorus 3.4 mg/dL (2.4-5.1)
[2025-04-01 08:00] LABS: Alanine Aminotransferase 232 U/L (7-40); Aspartate Aminotransferase 196 U/L (13-40); Blood Urea Nitrogen 7 mg/dL (9-23); Glucose 124 mg/dL (74-106); Potassium 3.3 mmol/L (3.5-5.1)
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
--- NOTE | 2025-04-01 21:35 | DVHPN2 ---
Progress Note - Dictate Date Seen: April 01, 2025 Medical Necessity Reason Pt with a Central, PICC or Fol: No Subjective Patient is not compliant with medical management and is refusing medications and medical care Patient has been refusing Carafate and only took one dose;Even refused the pill She took a shower today with the assistance and ambulated vital signs Vital Sign Date Time Temp Pulse Resp B/P (MAP) Pulse Ox O2 Delivery O2 Flow Rate FiO2 04/01/25 21:00 97.6 76 14 108/68 (81) 100 97.6 04/01/25 20:00 Room Air* 0 21 Total Intake and Output 03/31/25 03/31/25 04/01/25 15:00 23:00 07:00 Intake Total 173 ml 0 ml Output Total 350 ml 200 ml Balance -177 ml -200 ml medications Current Medications Medications Dose Ordered Sig/Heather Route Start Time Stop Time Status Last Admin Dose Admin Docusate Sodium 100 mg BIDPRN PRN PO 03/22/25 08:00 Acetaminophen 650 mg Q6HP PRN PO 03/22/25 08:00 Metoclopramide HCl 5 mg Q6HPRN PRN IV 03/22/25 08:00 04/01/25 09:07 5 MG Dextrose/Sodium Chloride 1,000 ml @ 75 mls/hr [id number] IV 03/23/25 11:00 04/01/25 09:17 75 MLS/HR Amino Acids 0 ml @ 0 mls/hr PER PHARMACY IV 03/23/25 17:15 Diagnostic Test (Pha) 1 strip Q6HR 03/24/25 00:00 04/01/25 18:00 1 STRIP Insulin Human Regular FOLLOW SLIDING SCALE Q6HR SC 03/24/25 00:00 03/31/25 18:16 2 UNITS Dextrose 50 ml UD IV 03/24/25 00:00 Ondansetron HCl 4 mg Q8HPRN PRN IV 03/24/25 13:30 04/01/25 05:05 4 MG Acyclovir 400 mg Q8HR PO 03/24/25 14:00 Azithromycin 500 mg DAILY PO 03/26/25 10:00 Amino Acids/ Electrolytes/ Dextrose 1,000 ml @ 41 mls/hr DAILY@2200 IV 03/30/25 22:00 03/31/25 21:19 41 MLS/HR Sucralfate 1 gm QIDACHS PO 03/31/25 07:00 03/31/25 21:30 1 GM Pantoprazole Sodium 40 mg BID@0600,1700 PO 03/31/25 17:00 03/31/25 17:48 40 MG objective General Appearance: Alert, Oriented X3, lethargic and sleepy but arousable, can not decipher her speech HEENT: Atraumatic, PERRLA, Mucous membr. moist/pink Respiratory: Clear to auscultation, Normal air movement Cardiovascular: Regular rate, Normal S1, Normal S2 Abdominal: Normal bowel sounds, Soft; mild epigastric tenderness no rebound or guarding Extremities: No clubbing, No cyanosis, No edema, Normal pulses laboratory and microbiology Laboratory Tests 04/01/25 06:28 03/24/25 11:20 Test 04/01/25 06:28 Range/Units Serum Glucose 124 H 74-106 mg/dL Problems(with codes): (1) Hiatal hernia with gastroesophageal reflux disease and esophagitis (2) Metabolic encephalopathy (3) Alteration of consciousness (4) Elevated liver enzymes Prognosis PLAN Thin liquids/puree diet as tolerated IV PPI daily, Hepatitis panel, MIRIAM, right upper quadrant ultrasound Continue to monitor labs Consider referral to inpatient psych facility for evaluation and management and transfer to higher level of care Dietary Evaluation Review Comments: 1. Advance diet as medically feasible 2. TPN to meet at least 75% estimated needs 3. Continue current POC Expected Outcomes/Goals: Energy & protein intake to meet at least 75% estimated needs FU 2-3 days Plan discussed with: Patient TERENCE MINER MD April 01, 2025 21:35
[2025-04-02] VITALS (9 sets, daily range): BP systolic 102–110; BP diastolic 56–71; PULSE 63–80; RESP 14–19; TEMP 96.3–98.2; O2SAT 97–100
--- NOTE | 2025-04-02 00:19 | DVH ---
INDICATION: elevated liver tests TECHNIQUE: Multiple real-time sonographic images of the abdomen were obtained. COMPARISON: None FINDINGS: Liver is normal in size measuring 12 cm and echogenicity with no lesions identified. No intrahepatic or extrahepatic biliary ductal dilatation noted with the common bile duct measuring 3 mm. Gallbladder appears unremarkable with no evidence of stones, wall thickening or pericholycystic fluid . Sonographic Vaz's sign was reportedly negative. Right kidney measures 9.3 cm and appears unremarkable with no hydronephrosis. Visualized pancreas appears unremarkable. IMPRESSION: No abnormality demonstrated.
[2025-04-02 08:53] LABS: Albumin 4.2 g/dL (3.2-4.8); Alkaline Phosphatase 73 U/L (46-116); Anion Gap 6 (5-15); BUN/Creatinine Ratio 18.4 (10.0-20.0); Calcium 9.9 mg/dL (8.7-10.4); Phosphorus 3.2 mg/dL (2.4-5.1); Total Protein 6.6 g/dL (5.7-8.2)
[2025-04-02 09:03] LABS: Sodium 134 mmol/L (136-145)
[2025-04-02 09:04] LABS: Alanine Aminotransferase 261 U/L (7-40); Aspartate Aminotransferase 151 U/L (13-40); Bilirubin, Total 1.3 mg/dL (0.2-1.0); Blood Urea Nitrogen 7 mg/dL (9-23); Carbon Dioxide 32 mmol/L (20-31); Chloride 96 mmol/L (98-107); Glucose 114 mg/dL (74-106); Potassium 2.9 mmol/L (3.5-5.1)
[2025-04-02] MEDS: POTASSIUM CHL 20MEQ/100ML 100 ML IV SCH (12:27)
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
[2025-04-02] MEDS: PPN PER PHARMACY IV NR (22:13)
[2025-04-03 00:58] VITALS: BP 113/56; PULSE 81; RESP 20; TEMP 97.8; O2SAT 100
[2025-04-03 05:00] VITALS: BP 113/56; PULSE 81; RESP 20; TEMP 97.8; O2SAT 100
[2025-04-03 08:00] VITALS: PULSE 78; RESP 18; O2SAT 96
[2025-04-03 09:22] LABS: Alkaline Phosphatase 85 U/L (46-116); Anion Gap 6 (5-15); BUN/Creatinine Ratio 28.6 (10.0-20.0); Blood Urea Nitrogen 10 mg/dL (9-23); Calcium 9.9 mg/dL (8.7-10.4); Glucose 101 mg/dL (74-106); Total Protein 6.7 g/dL (5.7-8.2)
[2025-04-03 09:23] LABS: Albumin 4.3 g/dL (3.2-4.8); Bilirubin, Total 1.2 mg/dL (0.2-1.0); Phosphorus 2.7 mg/dL (2.4-5.1)
[2025-04-03 09:34] LABS: Alanine Aminotransferase 305 U/L (7-40); Aspartate Aminotransferase 140 U/L (13-40); Carbon Dioxide 32 mmol/L (20-31); Chloride 97 mmol/L (98-107); Potassium 3.3 mmol/L (3.5-5.1); Sodium 135 mmol/L (136-145)
[2025-04-03] MEDS ORDERED: POTASSIUM CHL 20MEQ/100ML 100 ML IV ONE (10:45)
[2025-04-03] MEDS: AZITHROMYCIN 500MG/ 250ML 250 ML IV ONE (12:03)
[2025-04-03 12:06] LABS: Anti-Nuclear Antibody Direct Negative (Negative)
[2025-04-03] MEDS: POTASSIUM CHL 20MEQ/100ML 100 ML IV ONE (12:41)
[2025-04-03 13:00] VITALS: BP 103/60; PULSE 83; RESP 18; TEMP 99.1; O2SAT 99
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
[2025-04-03 21:00] VITALS: BP 94/55; PULSE 78; RESP 15; TEMP 98.4; O2SAT 100
[2025-04-03] MEDS: PPN PER PHARMACY IV NR (21:59)
[2025-04-04 01:00] VITALS: BP 98/61; PULSE 80; RESP 15; TEMP 99.1; O2SAT 100
[2025-04-04 05:00] VITALS: BP 99/54; PULSE 75; RESP 15; TEMP 98.5; O2SAT 75
[2025-04-04 08:37] VITALS: BP 102/55; PULSE 71; RESP 16; TEMP 97.6; O2SAT 98
[2025-04-04 09:24] LABS: Albumin 4.1 g/dL (3.2-4.8); Alkaline Phosphatase 81 U/L (46-116); Anion Gap 6 (5-15); BUN/Creatinine Ratio 26.3 (10.0-20.0); Bilirubin, Total 0.8 mg/dL (0.2-1.0); Blood Urea Nitrogen 10 mg/dL (9-23); Calcium 9.7 mg/dL (8.7-10.4); Carbon Dioxide 31 mmol/L (20-31); Chloride 101 mmol/L (98-107); Glucose 97 mg/dL (74-106); Magnesium 2.2 mg/dL (1.6-2.6); Phosphorus 3.4 mg/dL (2.4-5.1); Sodium 138 mmol/L (136-145); Total Protein 6.5 g/dL (5.7-8.2); Triglycerides 80 mg/dL (< 150)
[2025-04-04 09:28] LABS: Alanine Aminotransferase 207 U/L (7-40); Aspartate Aminotransferase 63 U/L (13-40); Potassium 3.4 mmol/L (3.5-5.1)
[2025-04-04] MEDS: ACETAMINOPHEN 325 MG TAB PO PRN (09:49)
[2025-04-04] MEDS: AZITHROMYCIN 500MG/ 250ML 250 ML IV SCH (09:49)
[2025-04-04] MEDS: POTASSIUM CHL 20MEQ/100ML 100 ML IV ONE (12:45)
[2025-04-04 13:35] VITALS: BP 107/53; PULSE 76; RESP 17; TEMP 97.7; O2SAT 99
[2025-04-04] MEDS ORDERED: PANT40TA2 PO (17:04)
[2025-04-04] MEDS ORDERED: SUCR1TAB PO (17:04)
[2025-04-04 18:02] VITALS: TEMP 36.5
--- NOTE | 2025-04-04 18:40 | DVHDS2 ---
Discharge Summary Date of Admission March 22, 2025 at 07:54 Date of Discharge: Apr 04, 2025 Labs/Diagnostic Data: Laboratory Results Test 04/04/25 17:07 04/04/25 08:54 04/02/25 08:15 04/01/25 06:28 POC Glucose 93 mg/dl (70-106) Sodium Level 138 mmol/L (136-145) Potassium Level 3.4 mmol/L (3.5-5.1) Chloride Level 101 mmol/L (98-107) Carbon Dioxide Level 31 mmol/L (20-31) Anion Gap 6 (5-15) Blood Urea Nitrogen 10 mg/dL (9-23) Creatinine 0.38 mg/dL (0.550-1.02) Glomerular Filtration Rate Calc 146 mL/min (>90) BUN/Creatinine Ratio 26.3 (10.0-20.0) Serum Glucose 97 mg/dL (74-106) Calcium Level 9.7 mg/dL (8.7-10.4) Phosphorus Level 3.4 mg/dL (2.4-5.1) Magnesium Level 2.2 mg/dL (1.6-2.6) Total Bilirubin 0.8 mg/dL (0.2-1.0) Aspartate Amino Transferase (AST) 63 U/L (13-40) Alanine Aminotransferase (ALT) 207 U/L (7-40) Alkaline Phosphatase 81 U/L (46-116) Total Protein 6.5 g/dL (5.7-8.2) Albumin 4.1 g/dL (3.2-4.8) Triglycerides Level 80 mg/dL (< 150) Ferritin 107.9 ng/mL (10-291) Ceruloplasmin 15.0 mg/dL (19.0-39.0) Anti-Nuclear Antibody Screen Negative (Negative) Hepatitis B Surface Antigen Negative (Negative) Test 03/31/25 11:49 03/25/25 09:30 03/24/25 11:20 03/23/25 18:13 Estimated GFR () 191 mL/min Estimated GFR (Non- 158 mL/min Cortisol AM Sample 7.45 ug/dL (5.27-22.45) White Blood Count 6.9 10^3/uL (4.4-10.8) Red Blood Count 4.45 10^6/uL (4.0-5.20) Hemoglobin 13.2 g/dL (12.2-16.2) Hematocrit 37.2 % (36.0-46.0) Mean Corpuscular Volume 83.5 fL (80.0-100.0) Mean Corpuscular Hemoglobin 29.7 pg (28.0-32.0) Mean Corpuscular Hemoglobin Concent 35.5 g/dL (32.0-36.0) Red Cell Distribution Width 14.2 % (11.8-14.3) Platelet Count 184 10^3/uL (140-450) Mean Platelet Volume 9.4 fL (6.9-10.8) Neutrophils (%) (Auto) 61.1 % (37.0-80.0) Lymphocytes (%) (Auto) 26.9 % (10.0-50.0) Monocytes (%) (Auto) 9.3 % (0.0-12.0) Eosinophils (%) (Auto) 1.9 % (0.0-7.0) Basophils (%) (Auto) 0.8 % (0.0-2.0) Neutrophils # (Auto) 4.2 10 ^3/uL (1.6-8.6) Lymphocytes # (Auto) 1.9 10 ^3/uL (0.4-5.4) Monocytes # (Auto) 0.6 10 ^3/uL (0-1.3) Eosinophils # (Auto) 0.1 10 ^3/uL (0-0.8) Basophils # (Auto) 0.1 10 ^3/uL (0-0.2) Nucleated Red Blood Cells 0.0 % Prothrombin Time 12.4 sec (9.3-11.8) Prothrombin Time INR 1.19 (0.9-1.15) Activated Partial Thromboplast Time 29.1 SEC (24.5-34.5) Folic Acid 12.61 ng/mL (>5.38) Vitamin B1 Level 68.2 nmol/L (66.5-200.0) Plasma/Serum Blood Alcohol 3.1 mg/dL (<10) Test 03/23/25 11:17 03/22/25 17:07 03/22/25 12:41 03/21/25 22:09 Creatine Kinase 22 U/L (34-145) Vitamin B12 Level 1204 pg/mL (211-911) Free Thyroxine (T4) Calculated 1.36 ng/dL (0.89-1.76) Thyroid Stimulating Hormone (TSH) 0.87 uIU/mL (0.55-4.78) Beta HCG, Quantitative 0.9 mIU/mL (1.5-4.2) Treponema pallidum Antibody Non-reactive (Negative) Hepatitis C Antibody Negative (Negative) HIV (1&2) Antibody Negative (Negative) Lactic Acid Level 0.9 mmol/L (0.4-2.0) Ammonia < 10 umol/L (11-32) Test 03/21/25 20:20 Urine Color Yellow (Yellow) Urine Clarity Turbid (Clear) Urine pH 6.0 (5.0-9.0) Urine Specific [place] 1.036 (1.001-1.035) Urine Protein 1+ (Negative) Urine Ketones 4+ (Negative) Urine Blood Negative /uL (Negative) Urine Nitrite Negative (Negative) Urine Bilirubin Negative (Negative) Urine Urobilinogen 2 mg/dL (Negative) Urine Leukocyte Esterase Trace /uL (Negative) Urine RBC 2 /hpf (0 - 4) Urine Microscopic WBC 14 /HPF (0-5) Urine Squamous Epithelial Cells Few /hpf (<5) Urine Bacteria None seen /hpf (None Seen) Urine Mucus Few (None Seen) Urine Glucose Normal mg/dL (Normal) Urine Test Negative (Negative) Urine Opiates Screen Neg (NEGATIVE) Urine Fentanyl Screen Neg (NEGATIVE) Urine Barbiturates Screen Neg (NEGATIVE) Urine Phencyclidine Screen Neg (NEGATIVE) Urine Amphetamines Screen Neg (NEGATIVE) Urine Benzodiazepines Screen Neg (NEGATIVE) Urine Cocaine Screen Neg (NEGATIVE) Urine Cannabinoids Screen Pos (NEGATIVE) Other Laboratory Tests 04/04/25 08:54 03/24/25 11:20 Brief Hx & Hospital Course: Miriam Pelletier is a 19-year-old female being seen for generalized weakness. The patient was brought in by her brother due to her not eating, vomiting, and losing weight. On assessment the patient is vomiting. She has refused to take anything PO from the nurse. She is not speaking much and will minimally answer questions. According to her older brother who is bedside, he states she ran away with her boyfriend about 4 years ago. She came home 2 years ago, stated something about possibly having an . Then left with the boyfriend again and was not seen for another 2 years. She came home yesterday and the family was concerned about her physical and mental state so they brought her to the hospital. He states when they were younger, there were problems with their real parents. Miriam and his younger brother were in counseling and placed on medications, but he is not sure of the diagnosis or the medication. During hospital stay she was minimally conversive and with selective mutism, seen by tele psychiatry in several occasions and unable to get an evaluation, she was on PPN for nutrition due to refusal to eat and drink. She had EGD with GI showed esophagitis Finally she spoke to nurse and started eating and wanted to go home. Condition at Discharge: Good Final Diagnosis/Problems List selective mutism esophagitis Discharge Disposition: Home Discharge Instruct/Medications Diet: Regular Activity: No Restrictions, As Tolerated Follow Up/Referral: PCP and psychiatry in 7 days Medications: pantoprazole, sucralfate Discharge Statement: "Patient was advised to return to the ER or call 911 if any headaches, dizziness, shortness of breath, chest pain, abdominal pain, bleeding, fevers, or worsening of medical condition. Patient was counseled about treatment plan, medications, possible side effects, patientverbalized understanding. All questions were answered to the best of my ability. This discharge took greater then 30 minutes in planning, reviewing documentation, counseling the patient, and discussing with other team members." ASSESSMENT ASSESSMENT Assessment selective mutism Date of Service: Apr 04, 2025 Billing Provider: JASMYNE AMADOR MD Common Visit Codes: 08343-KAV/OBS DISCH DAY >30min JASMYNE AMADOR MD Apr 04, 2025 18:40
[2025-04-04] MEDS ORDERED: PPN PER PHARMACY IV NR (22:00)
== END 2025-04-04 18:30 | disposition home or self-care (01) | DRG 241 ==
LOC: ER 16:11 → OVERFLOW 03-22 07:54 → WEST WING 03-22 13:41
PROVIDERS: ADMIT Hospitalist; ATTEND Hospitalist
PROC: 0DB68ZX Excision of Stomach, Via Natural or Artificial Opening Endoscopic, Diagnostic (ICD-10-PCS; 2025-03-24)
PROC: 0DB58ZX Excision of Esophagus, Via Natural or Artificial Opening Endoscopic, Diagnostic (ICD-10-PCS; 2025-03-24)
PROC: 0DB98ZX Excision of Duodenum, Via Natural or Artificial Opening Endoscopic, Diagnostic (ICD-10-PCS; principal; 2025-03-24 12:45)
DX: K29.70 Gastritis, unspecified, without bleeding (principal); G93.41 Metabolic encephalopathy; R47.01 Aphasia; R62.7 Adult failure to thrive; K29.80 Duodenitis without bleeding; K22.10 Ulcer of esophagus without bleeding; N39.0 Urinary tract infection, site not specified; K76.0 Fatty (change of) liver, not elsewhere classified; F12.90 Cannabis use, unspecified, uncomplicated; K44.9 Diaphragmatic hernia without obstruction or gangrene; E87.6 Hypokalemia; F94.0 Selective mutism; Z91.018 Allergy to other foods; Z79.899 Other long term (current) drug therapy; F44.9 Dissociative and conversion disorder, unspecified; Z68.1 Body mass index [BMI] 19.9 or less, adult
CPT/HCPCS: 36415; 70450; 71250; 74018; 74176; 76705; 80048; 80053; 80069; 80307; 80320; 81001; 81025; 82140; 82390; 82533; 82550; 82607; 82728; 82746; 82962; 83605; 83735; 84100; 84425; 84439; 84443; 84478; 84702; 85025; 85610; 85730; 86038; 86703; 86780; 86803; 86850; 86900; 86901; 87340; 92610; 96365; 96372; G0378; J0133; J1100; J1815; J2003; J2250; J2405; J2470; J2704; J3480; J7042; J7060; J7131